=== PATIENT | female | born 1985 | race Caucasian/White ===

== ENCOUNTER 2019-06-19 22:15 | Inpatient (IN) | payer BC ==
[~2019-06-19] VITALS: Ht 167.6 cm; Wt 70.0 kg
--- NOTE | 2019-06-19 22:20 | NUR ---
Pt arrived on unit ambulatory and escorted by with complaints of contractions. Pt denies any leaking of fluid or vaginal bleeding and reports normal movement. EFM and toco monitors started. SVE by this RN . Vital signs WNL. Information and FHR tracing reviewed with Dr. Lucero. Orders for labor assessment received. Plan of care reviewed with pt and at the bedside.
[2019-06-19 22:30] VITALS: BP 132/81; PULSE 75; TEMP 98.5
[2019-06-19] MEDS ORDERED: COLACE 100100 MG/CAP PO (22:36)
[2019-06-19] MEDS ORDERED: CALCIUM CARBON650 M2 (22:36)
[2019-06-19] MEDS ORDERED: PRENATAL (22:36)
--- NOTE | 2019-06-19 23:38 | NUR ---
2338- SVE by this RN -. Information and FHR tracing reviewed with Dr. Lucero. Labor admission orders received. Plan of care reviewed with pt and . 0000- IV started, labs obtained and LR infusing per order. See EMAR for details. 0004- Pt requesting an epidural. GEN Smith notified.
[2019-06-20] VITALS (66 sets, daily range): BP systolic 90–134; BP diastolic 46–80; PULSE 67–92; TEMP 97.9–98.4
[2019-06-20 00:32] LABS: BASO # 0.1 (0.0-0.2); BASO % 0.4 % (0.0-2.0); EOS % 0.1 % (0-4.0); GRAN # 16.1 (1.4-6.5); GRAN % 84.1 % (42.2-75.2); HEMOGLOBIN 11.3 g/dl (12.5-16.0); LYMPH # 1.9 (1.2-3.4); LYMPH % 9.9 % (20.0-51.0); MEAN CELL VOLUME 76 fl (80.0-100.0); MEAN CORPUSCULAR HEMOGLOBIN 25 pg (27.0-31.0); MEAN CORPUSCULAR HGB CONC 33 g/dl (33.0-37.0); MEAN PLATELET VOLUME 10.7 fl (7.4-10.4); MONO # 0.9 (0.1-0.6); MONO % 4.4 % (1.7-9.3); PLATELET COUNT 246 K/mm3 (130-400); RED BLOOD COUNT 4.49 M/mm3 (4.10-5.30)
--- NOTE | 2019-06-20 00:34 | NUR ---
0034- GEN Smith at the bedside. Pt sitting up on the edge of the bed for epidural placement. 0036- SPO2 monitor started. EFM intermittently tracing maternal HR as coorelates with SPO2 monitor. 0043- Test dose done per DEMOLITION HAMMER OPERATOR. See anesthesia record for details. 0049- Pt repositioned supine in bed with left wedge. EFM and toco monitors adjusted.
[2019-06-20 00:57] LABS: HEMATOCRIT 34.3 % (37.0-47.0)
[2019-06-20 00:58] LABS: REDCELL DISTRIBUTION WIDTH-CV 21.7 % (11.5-14.5)
--- NOTE | 2019-06-20 06:20 | NUR ---
0620-Recieved bedside shift report from CHUCK Ingram. Patient Resting WL with in room at bedside. IVF to Right hand. Vega to DD, clear light sandra urine return. Updated on plan of care, no needs at this time. Will continue to monitor. 0640-Dr. Lucero arrives on unit. Reviews FHR monitor. Updated on FHR decel at 0540 per button cutting machine operator RN. to patient room Reviews plan of care with patient. 0644-SVE by , AROM clear fluid / Repositioned WR and provided Lawanda care. Peanut ball placed. 0730-Repositioned WL w/peanut ball. Patient reports "I feel a little different but not pushy yet. " Encouraged to use Epidural MUSIC THERAPIST if sensation becomes painful.
--- NOTE | 2019-06-20 08:23 | NUR ---
0823-Dr. Urbina on unit. Reviews strip and updated on last SVE at 0808 /-1. In to see patient. No new orders.
--- NOTE | 2019-06-20 09:45 | NUR ---
0945-Dr. Urbina on unit. Reviews R monitor. Orders to check patient and update. 1000-Dr. Urbina updated on SVE 0 no new orders.
--- NOTE | 2019-06-20 10:59 | NUR ---
1059-Pitocin started per protocol at 2mu/min and MD order see physician notification. 1134-Deep variable decel in FHR down to 70bpm lasting 50 seconds followed by second decel one minute later down to 90bpm lasting 30 seconds. RN to bedside and SVE unchanged, repositioned WR, difficulty keeping continuous tracing in FHR due to maternal repositioning. RN stops pitocin at 1140 and continues to hold EFM in place. Updated on plan of care. 1145-Dr. Urbina on unit. Reviews FHR monitor and strip. Updated plan of care with patient. MD order to resume pitocin. 1152-Pitocin at 2mu/min per protocol and MD order.
--- NOTE | 2019-06-20 12:50 | NUR ---
1250-Dr. Urbina in to see patient SVE by MD unchnaged from previouis SVE. MD discusses plan of care with patient and delivery options. 1254-Pitocin off per MD. Patient and MD make decision for delivery. Patient prepped for surgery. 1255-Variable decel in FHR down to 70bpm with spontaneous return to to baseline. Repositioned LL. 1314-GEN Smith to patient room to dose epidural for surgery. Patient off EFM and taken to OR via bed.
--- NOTE | 2019-06-20 14:20 | NUR ---
1420-Patient to PACU via bed.Recieved report from GEN Smith. Patient A&O x4. IVF to right hand, barajas to DD. Binder in place. Fundal massage firm. Lochia WNL. Patient easily able to move legs. Denies pain at this time. Dressing to abdomen C/D/I. Updated on plan of care in PACU.
--- NOTE | 2019-06-20 15:00 | NUR ---
1500-Patient to room via bed. VSS. Vill[place] WNL. Oriented to room. Provided jello and crackers, tolerates without nausea. Will continue to monitor.
[2019-06-21 02:30] VITALS: BP 108/63; PULSE 70; TEMP 97.9
[2019-06-21 07:00] VITALS: BP 113/62; PULSE 77; TEMP 97.6
[2019-06-21] MEDS ORDERED: PERCOCET 325 MG1 TA2 PO (08:49)
[2019-06-21] MEDS ORDERED: MOTRIN 800800 MG/TAB PO (08:49)
--- NOTE | 2019-06-21 14:00 | NUR ---
Initial visit; Parents thanked Lead Care Manager for offering congratulations and God's blessings for the of their daughter. Lead Care Manager thanked family for choosing [facility].
[2019-06-21 16:15] VITALS: BP 116/56; PULSE 81; TEMP 97.7
[2019-06-21 20:25] VITALS: BP 126/64; PULSE 77; TEMP 98.3
[2019-06-22 07:30] VITALS: BP 105/67; PULSE 65; TEMP 98.7
[2019-06-22 17:00] VITALS: BP 115/60; PULSE 80; TEMP 97.5
[2019-06-22 20:00] VITALS: BP 113/65; PULSE 72; TEMP 97.5
[2019-06-23 08:00] VITALS: BP 125/68; PULSE 72; TEMP 98.1
== END 2019-06-23 13:00 | disposition home or self-care (01) | DRG 788 ==
LOC: LDRO 22:15 → LDR 23:42 → OB 06-20 15:00
PROVIDERS: ADMIT Student in an Organized Health Care Education/Training Program
PROC: 10D00Z1 Extraction of Products of Conception, Low, Open Approach (ICD-10-PCS; principal; 2019-06-20)
DX: O69.81X0 Labor and delivery complicated by cord around neck, without compression, not applicable or unspecified (principal); O62.1 Secondary uterine inertia; Z3A.40 40 weeks gestation of pregnancy; O76 Abnormality in fetal heart rate and rhythm complicating labor and delivery; Z23 Encounter for immunization; Z37.0 Single live birth
CPT/HCPCS: J0690; J1885; J2210; J2370; J2400; J2405; J2590; J7120

== ENCOUNTER 2021-07-01 07:51 | Inpatient (IN) | payer BC ==
[~2021-07-01] VITALS: Ht 167.6 cm; Wt 81.8 kg
[~2021-07-01 07:51] MED LIST: CALCIUM CARBON650 M2; COLACE 100100 MG/CAP PO; MOTRIN 800800 MG/TAB PO; PERCOCET 325 MG1 TA2 PO; PRENATAL
[2021-07-02] VITALS (16 sets, daily range): BP systolic 108–133; BP diastolic 58–82; PULSE 71–105; TEMP 97.8–98
[2021-07-02 10:26] LABS: MEAN CELL VOLUME 76 fl (80.0-100.0); MEAN CORPUSCULAR HEMOGLOBIN 25 pg (27-31); MEAN CORPUSCULAR HGB CONC 32 g/dl (33.0-37.0); MEAN PLATELET VOLUME 10.8 fl (7.4-10.4); PLATELET COUNT 255 K/mm3 (130-400); RED BLOOD COUNT 4.47 M/mm3 (4.10-5.30); REDCELL DISTRIBUTION WIDTH-CV 21.2 % (11.5-14.5)
[2021-07-02 10:29] LABS: HEMATOCRIT 34.1 % (37.0-47.0)
[2021-07-02 11:10] LABS: BAND 11 % (0-10); LYMPHOCYTE 3 % (20.0-51.0); METAMYELOCYTE 1 % (0-0); NEUTROPHILS 83 % (42.0-75.2); NUCLEATED RED BLOOD CELL 1 (0-6); PLATELET ESTIMATE NORMAL (NORMAL)
[2021-07-02 11:11] LABS: ANISOCYTOSIS 2+
--- NOTE | 2021-07-02 15:30 | NUR ---
Pt up to the bathroom with stand-by assist and without complications. Vega removed. Lawanda-care done. Pt back to bed independently. Call light within reach.
[2021-07-03 01:00] VITALS: BP 123/53; PULSE 70; TEMP 97.6
[2021-07-03 06:49] VITALS: BP 118/68; PULSE 72; TEMP 98.1
--- NOTE | 2021-07-03 09:40 | NUR ---
Initial visit; Parents thanked Vegetable Grader for offering congratulations and God's blessings for the of their son. Vegetable Grader thanked family for choosing [facility].
[2021-07-03 19:30] VITALS: BP 110/60; PULSE 71; TEMP 97.7
[2021-07-04 07:45] VITALS: BP 133/81; PULSE 83; TEMP 98.1
[2021-07-04] MEDS ORDERED: PERCOCET 325 MG1 TA2 PO (07:51)
[2021-07-04] MEDS ORDERED: MOTRIN 800800 MG/TAB PO (07:51)
--- NOTE | 2021-07-04 13:00 | NUR ---
Discharge instructions and follow up care reviewed with pt and at the bedside. Both verbalized an understanding, agreed with the plan and states no questions or concerns at this time.
== END 2021-07-04 13:20 | disposition home or self-care (01) | DRG 788 ==
LOC: LDR 07-02 07:51 → OB 07-02 09:46
PROVIDERS: ADMIT Obstetrics & Gynecology
PROC: 10D00Z1 Extraction of Products of Conception, Low, Open Approach (ICD-10-PCS; principal; 2021-07-02)
DX: O34.211 Maternal care for low transverse scar from previous cesarean delivery (principal); O26.86 Pruritic urticarial papules and plaques of pregnancy (PUPPP); O99.344 Other mental disorders complicating childbirth; F41.9 Anxiety disorder, unspecified; Z3A.39 39 weeks gestation of pregnancy; Z37.0 Single live birth
CPT/HCPCS: J0171; J0690; J1885; J2175; J2370; J2405; J2590; J7120

== ENCOUNTER 2023-11-30 12:16 | Outpatient (CLI) | payer BC ==
[~2023-11-30] VITALS: Ht 167.6 cm; Wt 65.0 kg
[2023-11-30 12:31] VITALS: BP 125/83; PULSE 71; TEMP 97.5
[2023-11-30 13:43] VITALS: BP 122/87; PULSE 69
[2023-11-30 14:00] VITALS: BP 102/74; PULSE 78
[2023-11-30 14:15] VITALS: BP 107/72; PULSE 76
[2023-11-30 14:45] VITALS: BP 111/78; PULSE 65
[2023-11-30 15:11] LABS: GLUCOSE,CSF 53 mg/dL (40-70); TOTAL PROTEIN,CSF 27 mg/dL (15-45)
[2023-11-30 16:52] LABS: CSF APPEARANCE CLEAR; CSF COLOR COLORLESS; CSF RBC 75 /mm3 (0-0)
[2023-11-30 17:00] LABS: CSF MONONUCLEAR 100 % (70-100); CSF POLYMORPHONUCLEAR 0 % (0-6)
[2023-12-02 05:38] LABS: ALBUMUN SERUM 4.2 g/dL (3.9-4.9)
[2023-12-02 14:12] LABS: ALBUMIN CSF 14 mg/dL (7-29); CSF,IGG 5.2 mg/dL (0.0-6.7)
[2023-12-03 05:39] LABS: CSF SYNTHESIS RATE 17.8 mg/day (()); IGG,SERUM 723 mg/dL (586-1602)
== END 2023-11-30 15:00 | disposition home or self-care (01) ==
LOC: COL.RAD 12:16
PROVIDERS: Psychiatry & Neurology Neurology
DX: M54.12 Radiculopathy, cervical region (principal); R93.89 Abnormal findings on diagnostic imaging of other specified body structures